=== PATIENT | female | born 1990 | race Caucasian/White ===

== ENCOUNTER 2018-07-29 18:01 | Emergency (ER) | payer OTHER ==
[2018-07-29] MEDS: DERMABOND TOPICAL SKIN ADHESIVE TOP (19:59)
== END 2018-07-29 20:17 | disposition home or self-care (01) ==
LOC: M ED 18:01
DX: O9A.213 Injury, poisoning and certain other consequences of external causes complicating pregnancy, third trimester (principal); S31.111A Laceration without foreign body of abdominal wall, left upper quadrant without penetration into peritoneal cavity, initial encounter; W26.8XXA Contact with other sharp object(s), not elsewhere classified, initial encounter; Y92.89 Other specified places as the place of occurrence of the external cause; Z3A.33 33 weeks gestation of pregnancy
CPT/HCPCS: 12001

== ENCOUNTER 2018-09-10 23:39 | Outpatient (CLI) | payer OTHER | END 2018-09-11 01:15 | disposition home or self-care (01) | LOC: M LDO 23:39 | DX: O47.1 False labor at or after 37 completed weeks of gestation (principal); Z3A.39 39 weeks gestation of pregnancy | CPT/HCPCS: 59025 ==

== ENCOUNTER 2018-09-12 00:30 | Inpatient (IN) | payer OTHER ==
[2018-09-12 02:06] LABS: BASO % 0.4 % (0.0-1.0); EOS # 0.1 10^3/uL (0.0-0.50); EOS % 0.5 % (0.0-3.0); HEMATOCRIT 36.2 % (36.0-47.0); HEMOGLOBIN 12.5 g/dl (12.0-15.5); IMMATURE GRANULOCYTE % 0.7 % (0-3.0); LYMPH # 1.8 10^3/uL (1.5-6.5); MEAN CORPUSCULAR HGB CONC 34.5 g/dl (32.0-36.5); MEAN CORPUSCULAR VOLUME 92.6 fl (80.0-96.0); MONO # 0.9 10^3/uL (0.0-0.8); MONO % 8.4 % (0.0-5.0); NEUTROPHILS # 8.1 10^3/uL (1.8-7.7); PLATELET COUNT, AUTOMATED 178 10^3/uL (150-450); RED BLOOD COUNT 3.91 10^6/uL (4.00-5.40); RED CELL DISTRIBUTION WIDTH 12.6 % (11.5-14.5); WHITE BLOOD COUNT 10.9 10^3/uL (4.0-10.0)
[2018-09-12] MEDS: LACTATED RINGER'S 1000 ML IV (02:14)
[2018-09-12] MEDS: PENICILLIN G POTASSIUM IV 5 MU in D5W MINI-BAG PLUS 100 ML IV (02:14)
[2018-09-12 02:21] LABS: APPEARANCE, URINE CLEAR (CLEAR); BACTERIA, URINE AUTO 1+ (NEGATIVE); BILIRUBIN, URINE AUTO NEGATIVE (NEGATIVE); BLOOD, URINE BLOOD NEGATIVE (NEGATIVE); COLOR, URINE YELLOW (YELLOW); GLUCOSE, URINE (UA) AUTO NEGATIVE (NEGATIVE); KETONE, URINE AUTO NEGATIVE (NEGATIVE); LEUKOCYTE ESTERASE, URINE AUTO TRACE (NEGATIVE); NITRITE, URINE AUTO NEGATIVE (NEGATIVE); PROTEIN, URINE AUTO NEGATIVE (NEGATIVE); RBC, URINE AUTO 2 /HPF (0-3); SPECIFIC GRAVITY URINE AUTO 1.011 (1.002-1.035); SQUAMOUS EPITHELIAL CELL UR AU 2 /HPF (0-6); UROBILINOGEN, URINE AUTO 0.2 mg/dL (0.0-2.0); WBC, URINE AUTO 11 /HPF (0-3)
[2018-09-12 02:34] LABS: CREATININE,RANDOM URINE 76.7 MG/DL
[2018-09-12 02:34] LABS: TOTAL PROTEIN,RANDOM URINE 30.4 MG/DL (0.0-12.0)
[2018-09-12 02:46] LABS: AMPHETAMINES URINE REFLEX NEGATIVE (NEGATIVE); BARBITURATES URINE REFLEX NEGATIVE (NEGATIVE); BENZODIAZEPINES URINE REFLEX NEGATIVE (NEGATIVE); CANNABINOIDS URINE REFLEX NEGATIVE (NEGATIVE); COCAINE METABOLITE URINE REFLE NEGATIVE (NEGATIVE); METHADONE URINE REFLEX NEGATIVE (NEGATIVE); OPIATES URINE REFLEX NEGATIVE (NEGATIVE); PHENCYCLIDINE URINE REFLEX NEGATIVE (NEGATIVE)
[2018-09-12 02:55] LABS: ALT/SGPT 20 U/L (12-78); AST/SGOT 20 U/L (7-37); BILIRUBIN,TOTAL 0.3 MG/DL (0.2-1.0); CREATININE FOR GFR 0.61 MG/DL (0.55-1.30); GLOMERULAR FILTRATION RATE > 60.0 (>60); LDH LACTATE DEHYDROGENASE 196 U/L (84-246); URIC ACID 3.8 MG/DL (2.6-6.0)
[2018-09-12] MEDS ORDERED: OXYTOCIN 30 UNITS IN 0.9% NaCl 500ML IV BAG (J2590) As Ordered (05:57)
[2018-09-12] MEDS: LR 1,000 ML IV ×3 (06:11→11:00)
[2018-09-12] MEDS: PENICILLIN G POTASSIUM IV 2.5 MU in APPROPRIATE DILUENT 1 EA IV ×3 (06:12→14:37)
[2018-09-12] MEDS: OXYTOCIN DRIP 30 UNITS in APPROPRIATE DILUENT 1 EA IV (06:14)
[2018-09-12] MEDS ORDERED: FENTANYL 2MCG/ML ROPIVACAINE 0.2% IN 0.9% NACL 200ML IVBAG As Ordered (10:13)
[2018-09-12] MEDS: FENTANYL/ROPIVACAINE/NACL BAG 200 ML EPIDURAL (11:27)
[2018-09-12] MEDS ORDERED: diphenhydrAMINE INJ 50MG/ML VIAL (J1200) IV (12:15)
[2018-09-12] MEDS ORDERED: EPIDURAL/PCA KEYS XX (12:15)
[2018-09-12] MEDS ORDERED: ePHEDrine SULFATE 25 MG/5 ML(5MG/ML) SYRINGE IV (12:15)
[2018-09-12] MEDS ORDERED: NALOXONE INJ 0.4 MG/1 ML VIAL (J2310) IV (12:15)
[2018-09-12] MEDS ORDERED: REFRIGERATOR IV KEYS XX (12:15)
[2018-09-12] MEDS ORDERED: LACTATED RINGER'S 1000 ML IV (12:15)
[2018-09-12] MEDS ORDERED: ONDANSETRON 4MG/2ML VIAL (J2405) IV (12:15)
[2018-09-12] MEDS ORDERED: EPIDURAL COMMENT XX (12:15)
[2018-09-12] MEDS: ACETAMINOPHEN 500 MG TAB PO (16:39)
[2018-09-12 18:41] LABS: CORD GAS ABE A -4.9; CORD GAS HCO3 A 21.9 MEQ/L; CORD GAS O2 SAT A 41.9 %; CORD GAS PCO2 A 46.6 mmHg; CORD GAS PH A 7.289 UNITS; CORD GAS PO2 A 20.4 mmHg; CORD GAS SBC A 19.1 MEQ/L; CORD GAS TCO2 A 23.3 MEQ/L
[2018-09-12 18:50] LABS: CORD GAS ABE V -4.8; CORD GAS PCO2 V 46.9 mmHg; CORD GAS PH V 7.289 UNITS; CORD GAS PO2 V 20.2 mmHg; CORD GAS SBC V 19.2 MEQ/L; CORD GAS TCO2 V 23.4 MEQ/L
[2018-09-12] MEDS ORDERED: DOCUSATE SODIUM 100 MG CAP PO (19:15)
[2018-09-12] MEDS ORDERED: METHYLERGONOVINE MALEATE 0.2 MG TAB PO (19:15)
[2018-09-12] MEDS ORDERED: MEASLES,MUMPS,RUBELLA VACCINE INJ (MMR-II) (90707) SC (19:15)
[2018-09-12] MEDS ORDERED: RHOGAM 300 MCG (1500 IU) INJ (J2790) IM (19:15)
[2018-09-12] MEDS ORDERED: MOM 30ML SUSPENSION UDC PO (19:15)
[2018-09-12] MEDS ORDERED: OXYTOCIN INJ 10 UNITS/ML VIAL (J2590) IV (19:30)
[2018-09-13 07:38] LABS: MEAN CORPUSCULAR HEMOGLOBIN 31.7 pg (27.0-33.0); MEAN CORPUSCULAR HGB CONC 34.1 g/dl (32.0-36.5); MEAN CORPUSCULAR VOLUME 92.9 fl (80.0-96.0); PLATELET COUNT, AUTOMATED 143 10^3/uL (150-450); RED BLOOD COUNT 3.12 10^6/uL (4.00-5.40); RED CELL DISTRIBUTION WIDTH 12.8 % (11.5-14.5); WHITE BLOOD COUNT 14.8 10^3/uL (4.0-10.0)
[2018-09-13 07:42] LABS: HEMOGLOBIN 9.9 g/dl (12.0-15.5)
[2018-09-13] MEDS: PRENATAL VITAMINS CHEWABLE TABLET PO (09:19)
[2018-09-13] MEDS: DIBUCAINE 1% OINTMENT 30GM TOP (09:19)
[2018-09-13] MEDS: IBUPROFEN 800 MG TAB PO ×2 (09:20→18:52)
[2018-09-13] MEDS: ACETAMINOPHEN 500 MG TAB PO ×2 (12:09→21:24)
[2018-09-14] MEDS: PRENATAL VITAMINS CHEWABLE TABLET PO (07:45)
[2018-09-14] MEDS: IBUPROFEN 800 MG TAB PO (07:46)
== END 2018-09-14 11:00 | disposition home or self-care (01) | DRG 807 ==
LOC: M LDO 00:30 → M LDI 01:41 → M OBS 20:22
PROC: 10E0XZZ Delivery of Products of Conception, External Approach (ICD-10-PCS; principal; 2018-09-12)
PROC: 0HQ9XZZ Repair Perineum Skin, External Approach (ICD-10-PCS; 2018-09-12)
DX: O14.94 Unspecified pre-eclampsia, complicating childbirth (principal); Z37.0 Single live birth; Z3A.40 40 weeks gestation of pregnancy; O99.824 Streptococcus B carrier state complicating childbirth; O70.0 First degree perineal laceration during delivery